=== PATIENT | female | born 1990 | race Caucasian/White ===

== ENCOUNTER 2024-10-13 14:10 | Emergency (ER) | payer MEDICAID, SELFPAY ==
[2024-10-13 14:13] VITALS: BP 153/135; PULSE 114; RESP 22; TEMP 37; O2SAT 97; BMI 52.0
--- NOTE | 2024-10-13 14:22 | RAD_ITS ---
PROCEDURE: CHEST 1 VIEW (PORTABLE) 10/13/2024 REASON FOR EXAM: PAIN TECHNIQUE: Frontal view of the chest. COMPARISON: None provided. RAD/Chest 1 View (Portable) IMPRESSION: Examination limited by AP portable technique, body habitus, hypoinflation, and mild patient motion. No acute pneumonic process is clearly appreciated, given these limitations. No pleural effusion or pneumothorax is seen. The cardiomediastinal silhouette is within the normal range. No significant osseous abnormality is evident. Reading Location: [id number]
--- NOTE | 2024-10-13 14:23 | EKG12_ITS ---
Test Reason : ABD PAIN Blood Pressure : */* mmHG Vent. Rate : 106 BPM Atrial Rate : 106 BPM P-R Int : 124 ms QRS Dur : 80 ms QT Int : 348 ms P-R-T Axes : 61 18 19 degrees QTcB Int : 462 ms Sinus tachycardia Possible Inferior infarct , age undetermined Cannot rule out Anterior infarct , age undetermined Abnormal ECG Confirmed by LEANN TOWNSEND, ERIN ([id number]), acquisitions editor AYSHA EVANS ([id number]) on 10/16/2024 6:54:03 AM Referred By: Confirmed By: ERIN NORIEGA MD
--- NOTE | 2024-10-13 14:24 | ED.VIS.CHEST ---
HPI History of Present Illness Chief Complaint: Chest Pain Informant: patient, parent and EMS Narrative Narrative: By my EMS from pulmonary office sudden onset left-sided cramping chest abdomen going up to her shoulder. She has had on and off symptoms in the past PCP placed her magnesium daily for the past month. Denies cough. Yesterday saw her neurologist she sees for neuropathy pain in the legs with multiple surgeries from trauma along with diabetes. She was switched over from Flexeril to baclofen. She did not take it this morning as she states it makes her sleepy and wanted to be alert for her pulmonary visit. She is being seen for nodules. States typically cramping does not last as long currently has been there for 30 minutes. She does have fibromyalgia. Prior Similar Symptoms: Yes CVD Risk Factors: Positive for Diabetes and Smoking PE Risk Factors: Negative for Recent Travel/Surgery, Recent Immobilization or Prior DVT or PE [facility] Medical History (Updated 10/13/24 @ 16:[address] Yaya Torres DO) SOB (shortness of breath) Home Medications ?Medication ?Instructions ?Recorded ?Last Taken ?Type ondansetron 4 mg disintegrating 4 mg PO Q8H PRN PRN Nausea #10 tabs 10/13/24 Unknown Rx tablet Allergy/AdvReac Type Severity Reaction Status Date / Time doxycycline Allergy Severe Anaphylaxis Verified 10/13/24 14:18 metoclopramide (From Reglan) Allergy Severe irritabilit Verified 10/13/24 14:18 y ceftriaxone (From Rocephin) Allergy Intermediate Swelling Verified 10/13/24 14:18 cephalexin (From Keflex) Allergy Intermediate swelling Verified 10/13/24 14:18 Penicillins (PCN) Allergy Intermediate Swelling Verified 10/13/24 14:18 tramadol (From Ultram) Allergy Intermediate Swelling Verified 10/13/24 14:18 nitrofurantoin (From Allergy Mild Swelling Verified 10/13/24 14:18 Macrobid) Social History Smoking Status: Current every day smoker tobacco type: cigarettes EXAM Physical Exam Const Vital Signs: 10/13/24 14:13 10/13/24 14:19 10/13/24 14:43 Temperature 98.6 F Temperature Source Oral Pulse Rate 114 H 108 H Respiratory Rate 22 H 18 Respiratory Effort Short of Breath Blood Pressure 153/135 H 113/89 H Blood Pressure Mean 141 97 Pulse Ox 97 96 Oxygen Delivery Method Room Air Room Air 10/13/24 15:49 10/13/24 16:49 Temperature 98.2 F Temperature Source Pulse Rate 107 H 107 H Respiratory Rate 18 14 Respiratory Effort Blood Pressure 126/82 H 118/75 Blood Pressure Mean 96 89 Pulse Ox 94 100 Oxygen Delivery Method Room Air Positive well nourished and well developed Constitutional Narrative: Tearful, uncomfortable, nontoxic. General Appearance ED: well developed HEENT Reports moist mucous membranes normocephalic and atraumatic Eyes General Eye ED: Yes normal appearance of both eyes Neck full ROM Chest Wall Chest: Negative for tenderness Resp normal respiratory effort and normal air movement Effort and Inspection: symmetric chest movement; Negative for respiratory distress Cardio regular rhythm and no murmurs Rate: tachycardic Peripheral Pulses: pulses 2+ throughout GI normal to inspection, nondistended, normoactive bowel sounds and non-tender Palpation: Negative for guarding or rebound tenderness present Extremity normal to inspection General Extremety ED: Negative for edema or tenderness General Extremity: Negative for edema Neuro oriented x3 and no sensory deficits noted Sensorium / Orientation: awake and alert Skin no rashes or lesions noted and no wounds MDM MDM MDM Narrative Medical decision making narrative: Interventions / MDM: Differential diagnosis: Muscle cramps, atypical chest pain Diagnosis considered but do not suspect: ACS however cardiac workup negative. Pulmonary embolus however no dyspnea no hypoxia. My EKG interpretation: Sinus rate of 106, no ST changes. T wave version leads III nonspecific. QTc 462. Imaging independently reviewed and interpreted by myself: 1 view chest x-ray: No acute process. External documents reviewed: N/A Test considered but not ordered:N/A ED course: Patient is uncomfortable due to cramping pain left chest abdomen. History of similar currently lasting longer she is on baclofen at home started yesterday do not take today. Left-sided chest pain will perform cardiac workup. Will check magnesium level as she has been daily for the last month. Will give p.o. baclofen. Will reevaluate. 1535: Cramping was improving nauseated Zofran ordered. Was awaiting troponin. Chest x-ray negative. Labs white count 12.7114. Creatinine normal 0.78. Agnesian normal at 1.7. 1615: Initial troponin negative will await delta troponin as symptoms are improving. 1640: Repeat troponin negative. Symptom-free. Nausea improved. She is ambulating. She has a baclofen at home. I will send Magalys to her pharmacy. Outpatient follow-up with her doctors. All questions were answered. Re-evaluation: stable Disposition discussed with patient/family/significant other: Patient and father Case discussed with consulting clinician: N/A This note was generated with [employer] dictation software. It may contain incorrect words, spelling, and punctuation that were not noted in checking the note before signing. Lab Data Attestation: I reviewed the patient's lab results. Labs: Laboratory Results - last 24 hr 10/13/24 10/13/24 14:25 16:10 WBC 12.7 H RBC 4.77 Hgb 14.0 Hct 41.8 MCV 87.6 MCH 29.4 MCHC 33.5 RDW Std Deviation 48.7 H RDW Coeff of Chantal 15.2 H Plt Count 412 MPV 9.3 Immature Gran % (Auto) 0.500 Neut % (Auto) 71.7 H Lymph % (Auto) 18.9 L [place] % (Auto) 6.8 Eos % (Auto) 1.7 Baso % (Auto) 0.4 Absolute Neuts (auto) 9.1 H Absolute Lymphs (auto) 2.40 Nucleated RBC % 0 Sodium 135 Potassium 3.4 Chloride 95 L Carbon Dioxide 20.9 L Anion Gap 19 H BUN 12 Creatinine 0.78 Estim Creat Clear Calc 126.17 Est GFR (MDRD) Non-Af 102 BUN/Creatinine Ratio 14.8 Glucose 141 H Calcium 10.1 Magnesium 1.7 Troponin T High Sens < 6 Troponin T Hi Sens 2 Hr 7 Radiography Diagnostic Testing: Clinical Impression(s) from Imaging Studies Chest X-Ray 10/13/24 14:22 IMPRESSION: Examination limited by AP portable technique, body habitus, hypoinflation, and mild patient motion. No acute pneumonic process is clearly appreciated, given these limitations. No pleural effusion or pneumothorax is seen. The cardiomediastinal silhouette is within the normal range. No significant osseous abnormality is evident. Reading Location: [address] Discharge Plan Triage Chief Complaint: Chest Pain ED Provider: Yaya Torres Dx/Rx/DC Orders Clinical Impression: Abdominal cramping, Chest pain Instructions: Muscle Spasm, ED Chest Pain, Uncertain Cause Prescriptions: New ondansetron 4 mg tablet,disintegrating 4 mg PO Q8H PRN PRN (Reason: Nausea) Qty: 10 0RF Primary Care Provider: Tee Jackson Referrals: Tee Jackson DO [Primary Care Provider] - 3-5 Days Activity Restrictions/Additional Instructions: Continue baclofen. Continue oral fluids for hydration. Use Zofran as needed. Follow-up with your doctor. Your cardiac workup negative. Print Language: [place] Disposition Disposition: Home, Self Care Discharge Date/Time: 10/13/24 16:50
[2024-10-13] MEDS: Baclofen 10 MG Tablet PO (14:42)
[2024-10-13 14:43] VITALS: BP 113/89; PULSE 108; RESP 18; O2SAT 96
[2024-10-13 14:43] LABS: Absolute Neutrophil Count 9.1 X10^3/uL (2.0-7.7); Basophil# 0.05 X10^3/uL; Basophil% 0.4 % (0-1); Eosinophil# 0.21 X10^3/uL; Eosinophils% 1.7 % (0-5); Hematocrit 41.8 % (37-47); Lymphocyte % 18.9 % (19-41); Mean Corp Hgb Conc 33.5 g/dL (32-36); Mean Corpuscular Hgb 29.4 pg (27.0-32.0); Mean Corpuscular Volume 87.6 fL (81-99); Mean Platelet Vol. 9.3 fl (6.2-12.0); Monocyte# 0.87 X10^3/uL; Monocyte% 6.8 % (0-10); NRBC Flagged by Analyzer 0 % (0-5); Neutrophil # 9.13 X10^3/uL (2.7-7.7); Neutrophil % 71.7 % (47-70); Platelet Count 412 K/mm3 (150-450); RBC Distribution Width CV 15.2 % (11.6-14.6); RBC Distribution Width SD 48.7 fl (35.1-43.9); Red Blood Count 4.77 M/mm3 (4.2-5.4); White Blood Count 12.7 K/mm3 (4.4-11.0)
[2024-10-13 15:15] LABS: Anion Gap 19 (5-15); BUN 12 mg/dL (4-19); BUN/Creat Ratio 14.8 RATIO (10-20); Calcium,Total 10.1 mg/dL (7.6-11.0); Carbon Dioxide 20.9 mmol/L (21.0-32.0); Chloride 95 mmol/L (98-108); Creatinine, Serum 0.78 mg/dL (0.70-1.20); EST Glomerular Filtration Rate 102 (>60); Estimated Creatinine Clearance 126.17 ml/min (50-250); Glucose 141 mg/dL (70-99); Magnesium 1.7 mg/dL (1.5-2.2); Potassium 3.4 mmol/L (3.3-5.1); Sodium Level 135 mmol/L (133-145)
[2024-10-13] MEDS: Ondansetron 4 MG/2 ML Vial IV (15:48)
[2024-10-13 15:49] VITALS: BP 126/82; PULSE 107; RESP 18; O2SAT 94
[2024-10-13 15:58] LABS: Troponin T High Sensitivity < 6 ng/L (<=14)
[2024-10-13 16:37] LABS: Troponin T High Sens 2 HR 7 ng/L (<=14)
[2024-10-13 16:49] VITALS: BP 118/75; PULSE 107; RESP 14; TEMP 36.8; O2SAT 100
== END 2024-10-13 16:50 | disposition home or self-care (01) ==
PROVIDERS: Emergency Provider Emergency Medicine; PCP Family Medicine; Visit Provider Emergency Medicine
DX: R10.9 Unspecified abdominal pain (principal); E11.40 Type 2 diabetes mellitus with diabetic neuropathy, unspecified; M79.7 Fibromyalgia; F17.210 Nicotine dependence, cigarettes, uncomplicated; R07.9 Chest pain, unspecified
CPT/HCPCS: 71045; 80048; 83735; 84484; 85025; 93005; 96374; 99285; A4216; J2405